=== PATIENT | male | born 1950 ===

== ENCOUNTER 2020-08-03 17:48 | Emergency (ER) | payer MEDICARE, OTHER ==
[2020-08-03] MEDS ORDERED: Bacitracin Oint 1 GM U/D Packet TOP ONE (18:52)
[2020-08-03] MEDS ORDERED: Diphtheria,Pertussis(Acell),Tetanus Vaccine 0.5 ML SDV IM ONE (18:52)
[2020-08-03] MEDS ORDERED: Amoxicillin 250 MG Cap ONE (19:00)
[2020-08-03] MEDS ORDERED: Lidocaine 1% with EPINEPHrine 1:100,000 50 ML MDV SUBCUT STA (19:05)
--- NOTE | 2020-08-03 19:06 | EDM.PDOC ---
ED HPI GENERAL MEDICAL PROBLEM - General Chief Complaint: Laceration Stated Complaint: laceration Time Seen by Provider: 08/03/20 18:25 Source of Information: Reports: Patient History Limitations: Reports: No Limitations - History of Present Illness INITIAL COMMENTS - FREE TEXT/NARRATIVE: patient presented to the ER due to laceration to the right LE. He was trying to get into the boat and hit the edge of the boat frame..He washed the wound with the [place] water and drove to the ER. Onset: Sudden Duration: Minutes: (30) Location: Reports: Lower Extremity, Right Right Knee Pain Score (Numeric/FACES): 2 - Related Data Allergies Allergy/AdvReac Type Severity Reaction Status Date / Time No Known Allergies Allergy Verified 08/03/20 18:38 Home Meds: Home Meds Amoxicillin 500 mg PO BID #14 capsule 08/03/20 [Rx] Past Medical History - Past Health History Medical/Surgical History: Denies Medical/Surgical History Social & Family History - Tobacco Use Tobacco Use Status *Q: Current Some Day Tobacco User Years of Tobacco use: 20 Packs/Tins Daily: 0.5 - Recreational Drug Use Recreational Drug Use: No ED ROS GENERAL - Review of Systems Review Of Systems: See Below Constitutional: Reports: No Symptoms HEENT: Reports: No Symptoms Respiratory: Reports: No Symptoms Cardiovascular: Reports: No Symptoms GI/Abdominal: Reports: No Symptoms Musculoskeletal: Reports: No Symptoms ED EXAM, SKIN/RASH Exam: See Below Exam Limited By: No Limitations General Appearance: Alert, WD/WN, No Apparent Distress Eye Exam: Bilateral Eye: EOMI Respiratory/Chest: No Respiratory Distress Cardiovascular: Regular Rate, Rhythm GI/Abdominal: Non-Tender Extremities: Normal Inspection, Normal Range of Motion Neurological: Alert, Oriented, No Motor/Sensory Deficits Skin: Other (there is 1.5 in wound to the front lower end of the thigh / just above the knee. no active bleeding. no FB) ED SKIN PROCEDURES - Laceration/Wound Repair Right Anterior Distal Thigh Appearance: Subcutaneous, Irregular Distal NVT: Neuro & Vascular Intact, No Tendon Injury Anesthetic Type: Local Local Anesthesia - Lidocaine (Xylocaine): 1% with EPI Local Anesthetic Volume: 5cc Skin Prep: Chlorhexidine (Hibiciens), Providone-Iodine (Betadine) Exploration/Debridement/Repair: Wound Explored, Explored to Base, No Foreign Material Found Closed with: Sutures Lac/Wound length In cm: 3.5 Suture Size: 4-0 # of Sutures: 5 Suture Type: Nylon Sterile Dressing Applied: Nurse Tetanus Status Addressed: Yes Complications: No Course - Vital Signs Last Recorded V/S: Last Vital Signs Temp 37.0 C 08/03/20 18:38 Pulse 65 08/03/20 18:38 Resp 16 08/03/20 18:38 BP 154/60 H 08/03/20 18:38 Pulse Ox 95 08/03/20 18:38 - Orders/Labs/Meds Orders: Active Orders 24 hr Category Date Time Status Vaccines to be Administered [RC] PER UNIT ROUTINE Care 08/03/20 18:53 Active Meds: Medications Discontinued Medications Generic Name Dose Route Start Last Admin Trade Name Sunil PRN Reason Stop Dose Admin Diphtheria/Tetanus/Acell Pertussis 0.5 ml 08/03/20 18:52 08/03/20 18:55 Diphtheria,Pertussis(Acell),Tetanus Vaccine 0.5 Ml Sdv IM 08/03/20 18:53 0.5 ml .ONCE ONE Administration Lidocaine/Epinephrine 7 ml 08/03/20 19:05 08/03/20 19:07 Lidocaine 1% With Epinephrine 1:100,000 50 Ml Mdv SUBCUT 08/03/20 19:06 7 m l NOW STA Administration - Re-Assessments/Exams Free Text/Narrative Re-Assessment/Exam: 08/03/20 19:12 wound cleaning laceration repair - see procedure note tdap IM po abx Departure - Departure Time of Disposition: 19:13 Disposition: Home, Self-Care 01 Condition: Good Clinical Impression: Laceration of skin of right thigh Qualifiers: Encounter type: initial encounter Qualified Code(s): S71.111A - Laceration without foreign body, right thigh, initial encounter - Discharge Information *PRESCRIPTION DRUG MONITORING PROGRAM REVIEWED*: Not Applicable *COPY OF PRESCRIPTION DRUG MONITORING REPORT IN PATIENT CABRERA: Not Applicable Prescriptions: Amoxicillin 500 mg PO BID #14 capsule Instructions: Laceration Care, Adult, Sutures, [place], or Adhesive Wound Closure, [id number] Referrals: PCP,None [Primary Care Provider] - Forms: ED Department Discharge Additional Instructions: take antibiotics as prescribed tylenol for pain as needed learn dressing on for 48 hrs - after that - you can change daily by applying antibiotic ointment and daily sterile dressing suture removal after 10-14 days return to the ER if any concerns or signs of wound infection Sepsis Event Note (ED) - Evaluation Sepsis Screening Result: No Definite Risk - Focused Exam Vital Signs: Vital Signs Temp Pulse Resp BP Pulse Ox 08/03/20 18:38 37.0 C 65 16 154/60 H 95 - Problem List & Annotations (1) Laceration of skin of right thigh SNOMED Code(s): 510351352 Code(s): S71.111A - LACERATION WITHOUT FOREIGN BODY, RIGHT THIGH, INIT ENCNTR Status: Acute Priority: Low Current Visit: Yes Qualifiers: Encounter type: initial encounter Qualified Code(s): S71.111A - Laceration without foreign body, right thigh, initial encounter - Problem List Review Problem List Initiated/Reviewed/Updated: Yes - My Orders Last 24 Hours: My Active Orders 08/03/20 18:53 Vaccines to be Administered [RC] PER UNIT ROUTINE - Assessment/Plan Last 24 Hours: My Active Orders 08/03/20 18:53 Vaccines to be Administered [RC] PER UNIT ROUTINE Plan: take antibiotics as prescribed tylenol for pain as needed learn dressing on for 48 hrs - after that - you can change daily by applying antibiotic ointment and daily sterile dressing suture removal after 10-14 days return to the ER if any concerns or signs of wound infection
== END 2020-08-03 19:13 | disposition home or self-care (01) ==
LOC: LB.ED 17:48
DX: S71.111A Laceration without foreign body, right thigh, initial encounter (principal); Z23 Encounter for immunization; W26.8XXA Contact with other sharp object(s), not elsewhere classified, initial encounter
CPT/HCPCS: 12002; 90471; 90715; 99282-25; A9270-GY